=== PATIENT | male | born 2000 | race Caucasian/White ===

== ENCOUNTER 2025-08-07 11:39 | Emergency (ER) | payer BC, OTHER ==
[2025-08-07] MEDS ORDERED: Ketorolac Tromethamine 30 MG (1 mL) VIAL ONE (12:36)
[2025-08-07] MEDS ORDERED: PROPOFOL 0 ML ONE (12:36)
[2025-08-07] MEDS ORDERED: PROPOFOL 20 ML ONE (13:26)
== END 2025-08-07 14:45 | disposition home or self-care (01) ==
LOC: CSHERS 11:39
DX: S52.122A Displaced fracture of head of left radius, initial encounter for closed fracture (principal); S53.145A Lateral dislocation of left ulnohumeral joint, initial encounter; S83.015A Lateral dislocation of left patella, initial encounter; W17.89XA Other fall from one level to another, initial encounter
CPT/HCPCS: 24600; 94760; 96374; 96375; 99152; J1885; J2704; J3010